=== PATIENT | male | born 1960 | race Caucasian/White ===

== ENCOUNTER 2023-09-30 11:47 | Inpatient (IN) | payer OTHER, SELFPAY ==
[2023-09-30] VITALS (14 sets, daily range): BP systolic 114–145; BP diastolic 77–92; BMI 23.7
--- NOTE | 2023-09-30 07:02 | ED.GENMED ---
History of Present Illness
General
Chief Complaint: Abdominal Pain
Source: patient and spouse
Time Seen by Provider: 09/30/23 06:42
History of Present Illness
History of Present Illness:
62-year-old male presents emergency department with nausea vomiting and diarrhea that started at approximately 9:30 PM on Thursday. This was after eating a potentially spoiled steak sandwich about 3 hours prior. Initially thought it was food
poisoning but is concerned because his symptoms continue and he has a complex prior medical history including a history of bowel obstructions, strictures, and adhesions. He suspects he is very dehydrated and describes '[id number]' in his
fingers this morning, body aches, fatigue, and a dry mouth. He denies coffee-ground emesis or hematemesis, denies blood or mucus in his stools, recent antibiotics, recent sick contacts, fever. He does have mild abdominal discomfort that is
'crampy' and worse when he vomits or has a bowel movement. He also feels slightly distended. Patient denies chest pain.
Past History
Past History
ED Past Medical History: Other (Colitis); Negative None
ED Past Surgical History: Bowel resection and Cardiac ( loop recorder, ablation)
Social History
Tobacco: Non-smoker
Alcohol: Occasional
Drug: None
Personal:
Living: with family
Employment: Employed
Phy Exam
Physical Exam
Physical Exam:
GENERAL: Alert , in no apparent distress
EYE: pupils equal and reactive
NECK: Supple, no significant adenopathy.
ENT: o/p clr, mm dry
CARDIAC: Regular rate and rhythm .
LUNGS: Clear breath sounds bilaterally, no acute respiratory distress, no wheezes/rales/rhonchi
ABDOMEN: Soft, very mild left lower quadrant tenderness, slightly hyperactive bowel sounds , no r/g
NEUROLOGICAL: Alert and oriented, no focal neuro deficits
SKIN: Warm and dry, skin intact.
MUSCULOSKELETAL: No edema, well perfused.
PSYCH: Normal and appropriate interaction.
Course
Orders/Labs/Results
Orders:
Orders
09/30/23 07:01
Cardiac Monitoring- Treatment ONCE
0.9% Sodium Chloride 1000 ml [Nss] 1,000 ml IV BOLUS
Ondansetron Injectable [Zofran] 4 mg IV NOW STA
CR Obstruct Series W/pa Chest Urgent
Comment:
Reason For Exam: hx bowel obstruction, hx colectomy
09/30/23 07:06
Complete Blood Count/No Diff Urgent
Comprehensive Metabolic Panel Urgent
Lipase Urgent
09/30/23 08:25
0.9% Sodium Chloride 500 ml [Nss] 500 ml IV BOLUS
Ondansetron Injectable [Zofran] 4 mg IV NOW STA
09/30/23 10:00
0.9% Sodium Chloride 1000 ml [Nss] 1,000 ml IV 125 mls/hr
09/30/23 11:32
GASTROINTESTINAL CONSULT Routine
Consulting Provider: Ashly Andrade
Was physician already notified: Yes
Reason for consult: NVD,Chrons
C difficile Antigen & Toxins Urgent
EKATERINA Source: Feces/Stool
Specimen Description:
Date Specimen was Collected: 09/30/23
Time Specimen was Collected: 11:30
Ova & Parasites Giardia/Crypto AG [Giardia/Cryptosporidium Ag] Urgent
EKATERINA Source: Feces/Stool
Specimen Description:
Date Specimen was Collected: 09/30/23
Time Specimen was Collected: 11:30
Stool Culture Urgent
EKATERINA Source: Feces/Stool
Specimen Description:
Date Specimen was Collected: 09/30/23
Time Specimen was Collected: 11:30
09/30/23 11:33
Admit/Transfer Patient As Directed
Co-Sign Provider:
Level of Care: Inpatient admission
Assign to:: Medical/Surgical
Physician / Group: Hospitalist
Diagnosis: Nausea vomiting diarrhea, partial SBO, Crohn's
Reason for Hospitalization: Nausea vomiting diarrhea, partial SBO, Crohn's
Expected length of stay greater than two midnights?: Yes
ELOS- Estimated Length of Stay in days: 2
I certify the patient meets the requirements for IP care: Yes
PRN Pain Medication Management As Directed
May give lesser potent ordered pain med per pt: Yes
preference::
Protocol:: Medication orders for pain may be administered in a
manner that supports deferring to patient preference
when the pt is:
-Requesting an ordered lesser potent pain medication.
Least to most potent pain medications are defined as:
acetaminophen < NSAID < tramadol < opioids (morphine,
oxycodone, hydromorphone).
- Requesting a lesser dose of the same medication IF
ORDERED.
- Requesting a less intrusive route of administration
if both routes are prescribed by the provider (PO <
IV).
09/30/23 11:35
Code Status As Directed
Resuscitation Status: Full Code
Abnormal Lab Results
09/30/23
07:06
RBC 6.17 H 10^6/uL
(4.70-6.10)
RDW 15.6 H %
(11.5-14.5)
BUN 24 H mg/dl
(9-20)
Creatinine 1.8 H mg/dL
(0.7-1.3)
Glucose 118 H mg/dl
(70-99)
Total Bilirubin 2.1 H mg/dl
(0.2-1.3)
Alkaline Phosphatase 134 H U/L
(38-126)
09/30/23 07:06
09/30/23 07:06
Vital Signs
Initial and Last Documented VS:
Initial Vital Signs
Temp Pulse Resp BP Pulse Ox
97.6 F 111 20 126/92 100
07/31/24 06:03 09/30/23 06:03 09/30/23 06:03 09/30/23 06:03 09/30/23 06:03
Last Documented Vital Signs
Temp Pulse Resp BP Pulse Ox
97.6 F 83 15 122/77 97
09/30/23 06:03 09/30/23 13:00 09/30/23 13:00 09/30/23 13:00 09/30/23 13:00
*Critical Care Note
Total Time (30-74mins, 75-104mins- exclusive of procedures): Not Applicable
Update Note
Update Note:
Patient presents to the Emergency Department with ____nausea vomiting diarrhea
Number and Complexity of Problems Addressed at the Encounter
� Chronic conditions affecting care:
� Acute Exacerbation and/or Progression of Chronic Illness:
� Differential Diagnosis includes: But not limited to food related toxin, bowel obstruction, dehydration, etc. etc.
Amount and/or Complexity of Data to be Reviewed and Analyzed
� I performed an independent evaluation of and my interpretation is:
EKG:
CT:
Xrays: suggest partial sbo (read by rads)
Laboratory Studies:generally unremarkable
Other:
� Review of other/old records reveals: July 2021 patient seen for PVI for A-fib
� Clinical information was obtained by an independent historian: who is bedside
� Prescriptions/Medications Considered but not given:
� Further testing considered but not performed:
Risk of Complications and/or Morbidity or Mortality of Patient Management
� Social determinants of health affecting care:
� Discussion with other providers (PCP, Hospitalists, Consultants, etc):
� Escalation of care including admission/observation vs risk of discharge considered:959 am mult reassessments, pt feels better, did urinate, however still quite nauseous and will not be able to tolerate po. Will admit given
noted sbo. No abd ttp/fever/leukocytosis etc to suggest more worrisome process. Hospitalist made aware.
ED Attending Note
-
Portions of this chart may have been created with voice recognition software.� Occasional wrong word or��sound alike� substitutions may have occurred due to the inherent limitations of voice recognition software.
Discharge Plan
Departure
Patient Disposition: Admit
Date of Disposition: 09/30/23
Time of Disposition: 10:00
Admit to: Med/Surg
Presentation/result/management discussed w/ accepting MD/DO: Hospitalist
Discharge Problem:
SBO (small bowel obstruction)
Interventions
Interventions:
*Risk Screen - Suicide Last Done: 09/30/23 07:16
*General Assessment Last Done: 09/30/23 06:03
*Neglect/Abuse Screening Last Done: 09/30/23 07:16
ED- Fall Risk Assessment Last Done: 09/30/23 11:25
*ED COVID-19 Vaccine History Last Done: 09/30/23 07:15
AL-Khcxvf-Lmglbysvex Assessment Last Done: 09/30/23 07:17
[2023-09-30 07:11] LABS: Hematocrit 50.9 % (39.0-52.0); Hemoglobin 17.9 g/dL (13.0-18.0); Mean Corp Hgb Conc. 35.2 g/dL (33.0-37.0); Mean Corpuscular Volume 82.5 fL (80.0-94.0); Platelet Count 211 10^3/uL (130-400); Red Blood Cell Count 6.17 10^6/uL (4.70-6.10); Red Cell Dist. Width 15.6 % (11.5-14.5); White Blood Cell Count 9.6 10^3/uL (4.8-10.8)
[2023-09-30] MEDS: ZOFRAN 4 MG IV ×3 (07:12→20:58)
[2023-09-30] MEDS: NSS 1000 IV ×3 (07:12→19:38)
[2023-09-30 07:33] LABS: ALT (SGPT) 25 U/L (0-50); AST (SGOT) 33 U/L (17-59); Albumin 4.9 g/dl (3.5-5.0); Alkaline Phosphatase 134 U/L (38-126); Blood Urea Nitrogen 24 mg/dl (9-20); Calcium 9.9 mg/dl (8.4-10.2); Carbon Dioxide 24 mmol/L (22-30); Chloride 103 mmol/L (98-107); Glucose 118 mg/dl (70-99); Lipase 98 U/L (23-300); Potassium 4.8 mmol/L (3.5-5.1); Sodium 138 mmol/L (135-145); Total Bilirubin 2.1 mg/dl (0.2-1.3); Total Protein 7.9 g/dl (6.3-8.2); eGFR 41.51
[2023-09-30] MEDS: NSS 500 IV (08:29)
--- NOTE | 2023-09-30 10:19 | HPS.HSE ---
Family Physician
-
Family Physician: Beth Draper
Chief Complaint
-
Abdominal pain
History of Present Illness
62-year-old male with nausea vomiting and diarrhea after eating potentially spoiled steak sandwich. Initially he felt food poisoning but that he has a history of bowel obstruction and adhesions. He also felt that he was dehydrated. He has had
several episodes of nausea and vomiting could not keep anything down. Also had several episodes of diarrhea. Abdominal cramps.
Medical History
Past Medical History
Past Medical History: Reports Other
Additional Past Medical History:
Paroxysmal atrial fibrillation, hypertension, wide-complex tachycardia, Crohn's disease, GERD, anemia
Past Surgical History: Reports Other
Additional Past Surgical History:
Ileoanal anastomosis, cardiac ablation
Social History
Tobacco: Non-smoker
Alcohol: None
Drug: None
Personal:
Living: With Family
Family History
Family History: Not pertinent
Allergies / Home Medications
Allergies reflects when Allergies were last updated in g[facility].
Home Medications with original date entered in g[facility]
Allergy/Medication List:
Allergies
Allergy/AdvReac Type Severity Reaction Status Date / Time
kiwi Allergy throat Verified 09/30/23 06:02
swelling
Penicillins Allergy Rash Verified 09/30/23 06:02
Home Medications
ustekinumab 45 mg/0.5 mL subcutaneous syringe (Stelara) 45 mg SC Q8W Autoimmune disorder 09/30/17
Saccharomyces boulardii 250 mg capsule 250 mg PO DAILY Gastrointestinal issue 01/22/21
omeprazole 20 mg capsule,delayed release 20 mg PO DAILY Gastrointestinal issue 01/22/21
terazosin 1 mg capsule 1 mg PO HS Urinary issue 01/22/21
metoprolol succinate 25 mg tablet,extended release 24 hr 25 mg PO DAILY 04/26/21
Review of Systems
-
A 12 point ROS was completed and negative except as noted: Yes
Cardiac: Denies Chest Pain
Abdomen/GI: Reports Abdominal Pain, Nausea, Vomiting and Diarrhea; Denies Bloody Stools
Physical Exam
Vital Signs
Vital Signs
Temp Pulse Resp BP Pulse Ox
97.6 F 83 14 134/83 98
09/30/23 06:03 09/30/23 10:00 09/30/23 10:00 09/30/23 10:00 09/30/23 10:00
Physical Exam
General: Comfortable and Conversant
Respiratory: Clear
Cardiac: S1/S2 and Regular Rhythm
GI: Soft, Normal Bowel Sounds and Tender (Mild left lower quadrant discomfort with palpation)
Neuro: AO x 3
Psych: Intact Judgment/Insight
Laboratory Results
-
09/30/23 07:06
09/30/23 07:06
Laboratory Results
Total Bilirubin 2.1 mg/dl (0.2-1.3) H 09/30/23 07:06
AST 33 U/L (17-59) 09/30/23 07:06
ALT 25 U/L (0-50) 09/30/23 07:06
Alkaline Phosphatase 134 U/L (38-126) H 09/30/23 07:06
Lipase 98 U/L (23-300) 09/30/23 07:06
Data Reviewed
-
Diagnostic Radiology: Report Reviewed by me (X-ray-lungs clear. Post colectomy with J-pouch findings consistent with small bowel obstruction likely partial/incomplete)
Impression/Plan
-
IMPRESSION/PLAN:
# Nausea vomiting and diarrhea
Possible infectious gastroenteritis
Check stool studies
Given history of Crohn's disease and partial small bowel obstruction will also request GI evaluation
# Acute kidney injury likely secondary to GI related losses
IV fluids and follow creatinine
# History of wide-complex tachycardia on Zio patch NSVT versus SVT with aberrancy-continue beta-blockers
Cardiac catheterization January 22, 2021-nonobstructive coronary artery disease-LAD, preserved LV systolic function
# Paroxysmal atrial fibrillation with pulmonary vein isolation/ablation-continue metoprolol. Not on anticoagulation now.
Patient states he has a loop monitor on and no events since then.
# Hyperlipidemia-takes atorvastatin
# Crohn's disease-on Stelara
# Right paracentral disc extrusion L5-S1
# Cholelithiasis
# Enlarged prostate-on terazosin. Advised to follow-up with urology
# GERD-continue PPI
# DVT prophylaxis-Lovenox
# Full code
Discussed with nursing
Discussed with patient's at bedside
--- NOTE | 2023-09-30 14:10 | CON.GI ---
Addendum entered and electronically signed by Ashly Andrade DO 09/30/23 16:36:
I saw and examined the patient.
The GIS SCIENTIST or PA's note was reviewed and I agree with the note.
Comment:
Flakito is a 62-year-old male with past medical history of ulcerative colitis s/p proctocolectomy with IPAA, converted to Crohn's disease complicated by multiple partial small bowel obstructions which have been managed medically who presents with
worsening abdominal pain, found to have a small partial small bowel obstruction. At time of evaluation patient already feeling better, states that has about 5 of these episodes per year but has not required evaluation in the ER in a few years. He
follows closely with his outpatient GI doctor, Dr. Nina. Currently, on Stelara, previously has been on Remicade and Entyvio. He has not had any hospitalizations while on Stelara. He is passing gas, feels like he has to have a BM.
-c/w IVF
-clear liquid diet
-will f/u in AM to decide on steroids, hold at this time
Original Note:
Consultation
-
Date/Time Consultation Requested: 09/30/23 1130
Date/Time Consultation Performed: 09/30/23 1420
Requesting Provider: Meghna Benites MD
Performing Provider: DARREN Peters, Felisa Andrade DO
Reason for Consultation: hx crohns hx SBO
Medical History
Chief Complaint / HPI
Chief Complaint: abdominal pain
History of Present Illness:
Pt is a 62yo with hx afib with prior ablation, GERD, HTN, chronic anemia with periodic iron infusion with [facility] though [place], and inflammatory bowel disease. Pt was initially diagnosed with ulcerative colitis in his early 20's
treated with sulfasalazine then eventual has 3 surgeries within [address] Mart at [facility]. He first completed ostomy then eventual J pouch with total colectomy. He was well for several years then began with recurrent abdominal
pain. After radiology review at [facility] and repeat flex sig was diagnosed with crohn's disease. He started Remicade with eventual resistance then Entyvio and now on Stelara for last 3 years. Last prolonged hospital admission was at [facility] 4 years ago.
He has had steroid treatment about every 2 years but no further surgery was needed. He is currently following with Dr. Ford with follow up last week and due for his every 2 year flex sig in March. He admits to occasional obstructive symptoms
that he will be able to control with limiting diet and exercise but now noted with episode of increased pain with vomiting and change in stool pattern prompting ER visit. On admission he is noted with imaging concern for small bowel obstruction
partial or incomplete. Since ER visit he is feeling better. He typically will have small stools or toothpaste consistency and now with all liquid stools.
Pt admits to some chronic dysphagia. He also has GERD with daily Omeprazole use. He states pain has been variable mostly on right side around prior ostomy. From -10/09. He denies hematemesis, blood or black in stools. No weight loss. Last
flex sig 2022 with flex sig completed every 2 years. Last EGD about 2 years ago.
Past Medical History
Past Medical History: Arrhythmias (afib, wide complex tachycardia ), GERD, HTN and Other (ulcerative colitis with total colectomy and Jpouch then later diagnosed with crohns disease, anemia, pouchitis )
Past Surgical History: Cardiac (ablation)
Social History
Tobacco: Non-Smoker
Alcohol: Other (1 drink per month )
Drug: None
Personal:
Living: With Family
Employment: Employed
Family History
Family History: Other (no family hx UC or crohns disease )
Allergies / Home Medications
Allergy/AdvReac Type Severity Reaction Status Date / Time
kiwi Allergy throat Verified 09/30/23 06:02
swelling
Penicillins Allergy Rash Verified 09/30/23 06:02
�Medication �Instructions �Recorded
ustekinumab 45 mg/0.5 mL 45 mg SC Q8W Autoimmune disorder 09/30/17
subcutaneous syringe (Stelara)
Saccharomyces boulardii 250 mg 250 mg PO DAILY Gastrointestinal 01/22/21
capsule issue
omeprazole 20 mg capsule,delayed 20 mg PO DAILY Gastrointestinal 01/22/21
release issue
terazosin 1 mg capsule 1 mg PO HS Urinary issue 01/22/21
metoprolol succinate 25 mg 25 mg PO DAILY 04/26/21
tablet,extended release 24 hr
rosuvastatin 5 mg tablet 5 mg PO DAILY 09/30/23
Review of Systems
-
History Source: Patient
Constitutional: Reports No Symptoms
EENT: Reports No Symptoms
Respiratory: Reports No Symptoms
Cardiac: Reports No Symptoms
Abdomen/GI: Reports Abdominal Pain, Nausea, Vomiting and Diarrhea
: Reports Difficulty Voiding
Musculoskeletal: Reports No Symptoms
Skin: Reports No Symptoms
Neurological: Reports No Symptoms
Endocrine: Reports No Symptoms
Hematologic/Lymphatic: Reports Other (chronic anemia with periodic transfusions)
Vital Signs
Temp Pulse Resp BP Pulse Ox
97.6 F 83 15 122/77 97
09/30/23 06:03 09/30/23 13:00 09/30/23 13:00 09/30/23 13:00 09/30/23 13:00
Physical Exam
Exam
General: Well Developed, Well Nourished and No Apparent Distress
HEENT: Normocephalic and Anicteric
Respiratory: Clear
Cardiac: Regular Rhythm
GI: Soft, Non Tender, Non Distended and Other (mid abdominal scar and prior ostomy site well healed , no distention)
Musculoskeletal: No Clubbing and No Cyanosis
Skin: Warm and Dry
Neuro: Awake, Alert and AO x 3
Psych: Calm
Results
WBC 9.6 10^3/uL (4.8-10.8) 09/30/23 07:06
Hgb 17.9 g/dL (13.0-18.0) 09/30/23 07:06
Hct 50.9 % (39.0-52.0) 09/30/23 07:06
MCV 82.5 fL (80.0-94.0) 09/30/23 07:06
Plt Count 211 10^3/uL (130-400) 09/30/23 07:06
Sodium 138 mmol/L (135-145) 09/30/23 07:06
Potassium 4.8 mmol/L (3.5-5.1) 09/30/23 07:06
Chloride 103 mmol/L (98-107) 09/30/23 07:06
Carbon Dioxide 24 mmol/L (22-30) 09/30/23 07:06
BUN 24 mg/dl (9-20) H 09/30/23 07:06
Creatinine 1.8 mg/dL (0.7-1.3) H 09/30/23 07:06
Calcium 9.9 mg/dl (8.4-10.2) 09/30/23 07:06
Total Bilirubin 2.1 mg/dl (0.2-1.3) H 09/30/23 07:06
AST 33 U/L (17-59) 09/30/23 07:06
ALT 25 U/L (0-50) 09/30/23 07:06
Alkaline Phosphatase 134 U/L (38-126) H 09/30/23 07:06
Lipase 98 U/L (23-300) 09/30/23 07:06
Diagnostic Image Results:
Prior GI Procedures:
EGD: last 2020 -- record not reviewed
EGD : 2018 Dr. Gutierrez- non severe reflux esophagitis, gastritis
flex sig: due 03/2024, last 04/2022 not review
flex sig 2018- anal stricture on digital rectal exam, crohns disease with ileitis inflammation in rectum mildly severe, unchanged from prior
Assessment / Plan
-
Pt is a 62yo with hx afib with prior ablation, GERD, HTN, chronic anemia with periodic iron infusion with [facility] [place], and inflammatory bowel disease. Pt was initially diagnosed with ulcerative colitis in his early 20's
treated with sulfasalazine then eventual has 3 surgeries within [address] Mart at [facility]. He first completed ostomy then eventual J pouch with total colectomy. He was well for several years then began with recurrent abdominal
pain. After radiology review at [facility] and repeat flex sig was diagnosed with crohn's disease. He started Remicade with eventual resistance then Entyvio and now on Stelara for last 3 years. Last prolonged hospital admission was at [facility] 4 years ago.
He has had steroid treatment about every 2 years but no further surgery was needed. He is currently following with Dr. Ford with follow up last week and due for his every 2 year flex sig in March. He admits to occasional obstructive symptoms
that he will be able to control with limiting diet and exercise but now noted with episode of increased pain with vomiting and change in stool pattern prompting ER visit. On admission he is noted with imaging concern for small bowel obstruction
partial or incomplete. Since ER visit he is feeling better. He typically will have small stools or toothpaste consistency and now with all liquid stools. Noted with ARNOLD creat 1.8 on admission with hbg up to 17.9
-crohns flare with concern for partial SBO
-longstanding IBD - initially UC then crohn's with hx total colectomy with J pouch
-ARNOLD on admission with hemoconcentration
-chronic iron deficiency anemia with period infusion
-hx dysphagia
other med problems:
-afib with prior ablation
-GERD
-HTN
PLAN:
etiology of symptoms with concern for crohns flare-- pt with known SB stricturing disease inflammatory vs stenosis( pt on chronic Stelara prior to admission with last steroid course 2 years ago) vs gastroenteritis vs other
pt already improving in ER with hydration as noted significant dehydration on admission with ARNOLD and hemoconcentration
will trial clear liquid diet and monitor
trend labs
hold steroids for now but if not improving consider course of steroids
add CRP. ESR
last dose Stelara 2 weeks ago
trend hbg expect drop with hydration and known chronic anemia
on discharge follow up with know GI Dr. Ford
-
-
Thank you for consultation and allowing me to participate in the patient's care. Please call the transplant surgeon GI physician during the after hours with any questions or concerns.
[2023-09-30 16:36] LABS: Erythrocyte Sed Rate 10 mm/hour (0-20)
[2023-09-30] MEDS: LOVENOX 40 MG SC (18:10)
[2023-09-30] MEDS: LIPITOR 10 MG PO (18:10)
[2023-09-30] MEDS: HYTRIN 1 MG PO (20:58)
[2023-10-01] MEDS: NSS 1000 IV ×2 (00:56→12:49)
[2023-10-01 03:11] VITALS: BP 120/78
[2023-10-01 08:00] VITALS: BP 143/87
[2023-10-01 08:54] LABS: % Basophils 0.5 % (0-2); % Immature Granulocytes 0.2 % (0-0.5); % Monocytes 7.1 % (1.7-9.3); % Neutrophils 75.2 % (42.2-75.2); Absolute Eosinophils 0.2 10^3/uL (0-0.7); Absolute Lymphocytes 0.8 10^3/uL (1.2-3.4); Absolute Monocytes 0.4 10^3/uL (0.1-0.6); Absolute Neutrophils 4.3 10^3/uL (1.4-6.5); Hematocrit 46.7 % (39.0-52.0); Hemoglobin 15.8 g/dL (13.0-18.0); Mean Corp Hgb Conc. 33.8 g/dL (33.0-37.0); Mean Corpuscular Hgb 29.4 pg (27.0-31.0); Mean Platelet Volume 10.1 fL (7.4-10.4); Nucleated Red Blood Cells % 0 % (-); Platelet Count 166 10^3/uL (130-400); Red Blood Cell Count 5.37 10^6/uL (4.70-6.10); Red Cell Dist. Width 15.1 % (11.5-14.5); White Blood Cell Count 5.7 10^3/uL (4.8-10.8)
[2023-10-01] MEDS: FLORASTOR 250 MG PO (09:32)
[2023-10-01] MEDS: DELTASONE 40 MG PO (09:33)
[2023-10-01] MEDS: TOPROL XL 25 MG PO (09:33)
[2023-10-01] MEDS: ZOFRAN 4 MG PO ×2 (09:34→18:28)
--- NOTE | 2023-10-01 11:14 | W.PN.GI.CBS2 ---
Addendum entered and electronically signed by Ashly Radha DO [place] 10/01/23 13:16:
I saw and examined the patient.
The FLEET MANAGER or PA's note was reviewed and I agree with the note.
Comment: Patient seen in follow-up, tolerating clear liquid diet, states he feels about 50% improved, but still feels he is obstructed. He is passing loose stools, no vomiting since arrival, zofran is helping.
Infectious studies have returned negative so far, will plan to start on Prednisone 40mg daily, hopefully, will see improvement in the next 24 hours. Will reevaluate in the AM, if feeling significantly improved, he will be okay to discharge with
Prednisone taper as an outpatient, and follow-up with his GI doctor, Dr. Nina. We discussed performing dedicated small bowel imaging, but he would like to defer this to outpatient with his GI doctor, unless he does not improve.
Original Note:
Today's Communication / Plan
-
slow improvement no vomiting
advance to full liquids
add Prednisone 40mg daily
add Zofran RTC over next 24 hours
check EKG
add on chemistry with ARNOLD on admission
cont frequent ambulation
if any worsening pain, recurrent vomiting consider IV steroid and surgical eval
on discharge follow up with know GI Dr. Ford
pt asking about discharge tomorrow as going on trip to [place] -- await labs and defer to hospitalist team for discharge-- from GI standpoint not ready today as need slow diet advancement and tolerating liquid to prevent recurrent dehydration
Assessment / Plan
-
Pt is a 62yo with hx afib with prior ablation, GERD, HTN, chronic anemia with periodic iron infusion with [facility] though [place], and inflammatory bowel disease. Pt was initially diagnosed with ulcerative colitis in his early 20's
treated with sulfasalazine then eventual has 3 surgeries within [address] Mart at [facility]. He first completed ostomy then eventual J pouch with total colectomy. He was well for several years then began with recurrent abdominal
pain. After radiology review at [place] and repeat flex sig was diagnosed with crohn's disease. He started Remicade with eventual resistance then Entyvio and now on Stelara for last 3 years. Last prolonged hospital admission was at [place] 4 years ago.
He has had steroid treatment about every 2 years but no further surgery was needed. He is currently following with Dr. Ford with follow up last week and due for his every 2 year flex sig in March. He admits to occasional obstructive symptoms
that he will be able to control with limiting diet and exercise but now noted with episode of increased pain with vomiting and change in stool pattern prompting ER visit. On admission he is noted with imaging concern for small bowel obstruction
partial or incomplete. Since ER visit he is feeling better. He typically will have small stools or toothpaste consistency and now with all liquid stools. Noted with ARNOLD creat 1.8 on admission with hbg up to 17.9
-crohns flare with concern for partial SBO
-longstanding IBD - initially UC then crohn's with hx total colectomy with J pouch
-ARNOLD on admission with hemoconcentration
-chronic iron deficiency anemia with period infusion
-hx dysphagia
other med problems:
-afib with prior ablation
-GERD
-HTN
PLAN:
etiology of symptoms with concern for crohns flare-- pt with known SB stricturing disease inflammatory vs stenosis( pt on chronic Stelara prior to admission with last steroid course 2 years ago) vs gastroenteritis vs other
continued improvement but still with pain and minimal stools
ESR 10, CRP 24.3
ok for full liquid diet trial with ensure
RTC Zofran with check of EKG this am for QTC
add Prednisone 40mg daily starting today
add on chemistry with ARNOLD on admission cont IVF per hospitalist team
cont frequent ambulation
trend labs
last dose Stelara 2 weeks ago
trend hbg expect drop with hydration and known chronic anemia
if any worsening pain, recurrent vomiting consider IV steroid and surgical eval
on discharge follow up with know GI Dr. Ford
pt asking about discharge tomorrow as going on trip to [place] -- await labs and defer to hospitalist team for discharge-- from GI standpoint not ready today as need slow diet advancement and tolerating liquid to prevent recurrent dehydration
Subjective
Subjective
Date of Service: October 01, 2023
minimal stools but no vomiting, still with abdominal pain no further vomiting
Objective
Data Reviewed
Laboratory Data:
Laboratory Results
10/01/23 08:08
Laboratory Results
Magnesium 2.0 mg/dl (1.6-2.3) 10/01/23 08:08
Total Bilirubin 2.1 mg/dl (0.2-1.3) H 09/30/23 07:06
AST 33 U/L (17-59) 09/30/23 07:06
ALT 25 U/L (0-50) 09/30/23 07:06
Alkaline Phosphatase 134 U/L (38-126) H 09/30/23 07:06
Lipase 98 U/L (23-300) 09/30/23 07:06
Vital Signs and I&O:
Vital Signs
Temp Pulse Resp BP Pulse Ox
97.7 F 79 18 143/87 96
10/01/23 08:00 10/01/23 08:00 10/01/23 08:00 10/01/23 08:00 10/01/23 08:00
I&O
09/30/23 10/01/23 10/02/23
06:59 06:59 06:59
Intake Total 1115 / 1115
Balance 1115 / 1115
Physical Exam
Physical Exam
HEENT: Anicteric and Moist mucous membranes
Cardiology: Normal Sinus Rhythm
Pulmonary: Clear
GI: Soft, Non Distended and Tender (diffuse lower abdomen )
Extremities: No Edema
Neuro: Non Focal
[2023-10-01 11:23] LABS: Blood Urea Nitrogen 16 mg/dl (9-20); Calcium 8.7 mg/dl (8.4-10.2); Carbon Dioxide 19 mmol/L (22-30); Chloride 110 mmol/L (98-107); Estimated Creatinine Clearance 70 ml/min; Glucose 79 mg/dl (70-99); Sodium 138 mmol/L (135-145); eGFR > 60.00
--- NOTE | 2023-10-01 14:41 | CM ---
Patient seen at bedside.
IA complete.
Patient lives in a 2 story home with and daughter.
2 steps into home & 12 steps to 2nd floor.
PLOF: Independent, driving.
No needs.
PLAN: Discharge when stable. No needs identified.
[2023-10-01] MEDS: NON-FORMULARY ITEM 1 UNIT PO (15:07)
[2023-10-01] MEDS: MYLICON 80 MG PO ×2 (15:17→18:34)
[2023-10-01 16:00] VITALS: BP 135/85
[2023-10-01] MEDS: LOVENOX SC ×2 (18:27→18:30)
[2023-10-01] MEDS: LIPITOR 10 MG PO (18:27)
[2023-10-01] MEDS: HYTRIN 1 MG PO (21:40)
[2023-10-01 23:23] VITALS: BP 121/76
[2023-10-02] MEDS: ZOFRAN PO (01:25)
[2023-10-02 06:00] VITALS: BMI 23.6
[2023-10-02 07:20] VITALS: BP 139/86
[2023-10-02 08:43] LABS: Hematocrit 44.4 % (39.0-52.0); Hemoglobin 15.5 g/dL (13.0-18.0); Mean Corp Hgb Conc. 34.9 g/dL (33.0-37.0); Mean Corpuscular Hgb 29.6 pg (27.0-31.0); Mean Corpuscular Volume 84.9 fL (80.0-94.0); Mean Platelet Volume 10.1 fL (7.4-10.4); Platelet Count 193 10^3/uL (130-400); Red Blood Cell Count 5.23 10^6/uL (4.70-6.10); Red Cell Dist. Width 14.7 % (11.5-14.5); White Blood Cell Count 9.5 10^3/uL (4.8-10.8)
[2023-10-02 08:53] LABS: Blood Urea Nitrogen 11 mg/dl (9-20); Calcium 9.2 mg/dl (8.4-10.2); Carbon Dioxide 24 mmol/L (22-30); Chloride 108 mmol/L (98-107); Estimated Creatinine Clearance 86 ml/min; Glucose 107 mg/dl (70-99); Potassium 4.4 mmol/L (3.5-5.1); Sodium 138 mmol/L (135-145); eGFR > 60.00
[2023-10-02] MEDS: NON-FORMULARY ITEM 1 UNIT PO (09:45)
[2023-10-02] MEDS: MYLICON 80 MG PO (09:50)
[2023-10-02] MEDS: DELTASONE 40 MG PO (09:51)
[2023-10-02] MEDS: TOPROL XL 25 MG PO (09:51)
[2023-10-02] MEDS: ZOFRAN 4 MG PO (09:53)
[2023-10-02] MEDS: FLORASTOR 250 MG PO (09:53)
--- NOTE | 2023-10-02 10:35 | W.PN.GI.CBS2 ---
Today's Communication / Plan
-
etiology of symptoms with concern for crohns flare-- pt with known SB stricturing disease inflammatory vs stenosis( pt on chronic Stelara prior to admission with last steroid course 2 years ago) vs gastroenteritis vs other
stool studies neg
continued improvement but still with pain but now some form to stool
ESR 10, CRP 24.3
tolerating some low residue diet with ensure
cont Zofran QTc 428 and stable
cont Prednisone 40mg daily with taper by 10mg every 5 days advised if increased symptoms after discharge to review with Dr. alvarado
now off IVF pt asking if need more prior to discharge will review with Dr. Benites
cont frequent ambulation
last dose Stelara 2 weeks ago - to review with known GI Dr. Ford for any need to change therapy or continue
trend hbg expect drop with hydration and known chronic anemia
if any worsening pain, recurrent vomiting consider IV steroid and surgical eval advised if discharged return with worsening symptoms
on discharge follow up with know GI Dr. Ford
Assessment / Plan
-
Pt is a 62yo with hx afib with prior ablation, GERD, HTN, chronic anemia with periodic iron infusion with [facility] though [place], and inflammatory bowel disease. Pt was initially diagnosed with ulcerative colitis in his early 20's
treated with sulfasalazine then eventual has 3 surgeries within [address] Mart at [facility]. He first completed ostomy then eventual J pouch with total colectomy. He was well for several years then began with recurrent abdominal
pain. After radiology review at [facility] and repeat flex sig was diagnosed with crohn's disease. He started Remicade with eventual resistance then Entyvio and now on Stelara for last 3 years. Last prolonged hospital admission was at [facility] 4 years ago.
He has had steroid treatment about every 2 years but no further surgery was needed. He is currently following with Dr. Ford with follow up last week and due for his every 2 year flex sig in March. He admits to occasional obstructive symptoms
that he will be able to control with limiting diet and exercise but now noted with episode of increased pain with vomiting and change in stool pattern prompting ER visit. On admission he is noted with imaging concern for small bowel obstruction
partial or incomplete. Since ER visit he is feeling better. He typically will have small stools or toothpaste consistency and now with all liquid stools. Noted with ARNOLD creat 1.8 on admission with hbg up to 17.9
-crohns flare with concern for partial SBO
-longstanding IBD - initially UC then crohn's with hx total colectomy with J pouch
-ARNOLD on admission with hemoconcentration
-chronic iron deficiency anemia with period infusion
-hx dysphagia
other med problems:
-afib with prior ablation
-GERD
-HTN
PLAN:
etiology of symptoms with concern for crohns flare-- pt with known SB stricturing disease inflammatory vs stenosis( pt on chronic Stelara prior to admission with last steroid course 2 years ago) vs gastroenteritis vs other
stool studies neg
continued improvement but still with pain but now some form to stool
ESR 10, CRP 24.3
tolerating some low residue diet with ensure
cont Zofran QTc 428 and stable
cont Prednisone 40mg daily with taper by 10mg every 5 days advised if increased symptoms after discharge to review with Dr. alvarado
now off IVF pt asking if need more prior to discharge will review with Dr. Benites
cont frequent ambulation
last dose Stelara 2 weeks ago - to review with known GI Dr. Ford for any need to change therapy or continue
trend hbg expect drop with hydration and known chronic anemia
if any worsening pain, recurrent vomiting consider IV steroid and surgical eval advised if discharged return with worsening symptoms
on discharge follow up with know GI Dr. Ford
Subjective
Subjective
Date of Service: October 02, 2023
low residue diet, passing some form to stools, still with some left sided pain but asking about discharge
Objective
Data Reviewed
Laboratory Data:
Laboratory Results
10/02/23 08:21
10/02/23 08:21
Laboratory Results
Magnesium 2.0 mg/dl (1.6-2.3) 10/01/23 08:08
Total Bilirubin 2.1 mg/dl (0.2-1.3) H 09/30/23 07:06
AST 33 U/L (17-59) 09/30/23 07:06
ALT 25 U/L (0-50) 09/30/23 07:06
Alkaline Phosphatase 134 U/L (38-126) H 09/30/23 07:06
Lipase 98 U/L (23-300) 09/30/23 07:06
Vital Signs and I&O:
Vital Signs
Temp Pulse Resp BP Pulse Ox
97.6 F 82 16 139/86 95
10/02/23 07:20 10/02/23 07:20 10/02/23 07:20 10/02/23 07:20 10/02/23 07:20
I&O
10/01/23 10/02/23 10/03/23
06:59 06:59 06:59
Intake Total 1115 / 1115 2335 / 2335
Balance 1115 / 1115 2335 / 2335
Physical Exam
Physical Exam
HEENT: Anicteric and Moist mucous membranes
Cardiology: Normal Sinus Rhythm
Pulmonary: Clear
GI: Soft, Non Distended and Tender (left sided )
Extremities: No Edema
Neuro: Non Focal
[2023-10-02] MEDS: NSS 1000 IV (13:08)
[2023-10-02 15:15] VITALS: BP 127/82
--- NOTE | 2023-10-02 15:20 | CM ---
Patient seen at bedside.
States will be discharged today.
No needs identified.
States Tracy to transport home.
PLAN: Discharge likely today. No needs identified.
--- NOTE | 2023-10-02 15:42 | W.PN.HOSP.TC ---
Today's Communication/Plan
-
discharge
steroid taper
Assessment / Plan
Assessment / Plan
note did not get saved yesterday. I did see and examine the patient.
CVS: S1-S2 normal
Chest: CTA B/L
Abdomen: Soft, NT , Bowel sounds present
Extremities: No edema, normal pulses
SKI PATROL: Non focal exam
# Nausea vomiting and diarrhea
Possible infectious gastroenteritis , also possible chron's flare
stool neg
Given history of Crohn's disease and partial small bowel obstruction steroids started
# Acute kidney injury likely secondary to GI related losses
resolved
# History of wide-complex tachycardia on Zio patch NSVT versus SVT with aberrancy-continue beta-blockers
Cardiac catheterization January 22, 2021-nonobstructive coronary artery disease-LAD, preserved LV systolic function
# Paroxysmal atrial fibrillation with pulmonary vein isolation/ablation-continue metoprolol. Not on anticoagulation now.
Patient states he has a loop monitor on and no events since then.
# Hyperlipidemia-takes atorvastatin
# Crohn's disease-on Stelara
# Right paracentral disc extrusion L5-S1
# Cholelithiasis
# Enlarged prostate-on terazosin. Advised to follow-up with urology
# GERD-continue PPI
# DVT prophylaxis-Lovenox
# Full code
D/W GI
D/W RN
Pt anxious to go home
tolerating LR diet
More than 30 minutes spent in discharge including
Final examination of the patient
Summarizing hospital stay
Instructions for continuing care to all relevant caregivers
Preparation of discharge records, prescriptions, and referral forms
Total time spent (in minutes): 32 min
Anticipated Discharge: Today
Subjective/Interval History
-
Date of Service: October 02, 2023
Objective Data
-
Labs:
Laboratory Results
10/02/23
08:21
WBC 9.5
Hgb 15.5
Hct 44.4
Plt Count 193
Sodium 138
Potassium 4.4
Chloride 108 H
Carbon Dioxide 24
BUN 11
Creatinine 0.9
Glucose 107 H
Calcium 9.2
Vital Signs:
Vital Signs
Temp Pulse Resp BP Pulse Ox
97.6 F 82 16 139/86 95
10/02/23 07:20 10/02/23 07:20 10/02/23 07:20 10/02/23 07:20 10/02/23 07:20
I&O
10/01/23 10/02/23 10/03/23
06:59 06:59 06:59
Intake Total 1115 / 1115 2335 / 2335
Balance 1115 / 1115 2335 / 2335
--- NOTE | 2023-10-02 15:51 | W.DS.TRANS ---
Addendum entered and electronically signed by Meghna Michael MD 10/02/23 16:13:
dictation- [id number]
Original Note:
DC Summary - Burner Tender
-
Discharge Instructions:
Sleep Apnea Risk Low
Discharge Diagnosis/Procedures Nausea vomiting and diarrhea
Dehydration
History of atrial fibrillation with ablation
High cholesterol
Chron's disease
Gallstones
Enlarged prostate
Right paracentral disc herniation L5-S1
Diet Low Residue
Activity As tolerated
Driving Restrictions As prior to admission
Instructions:
Stand-Alone Forms:
Changes to Home Medications: Yes
Discharge Medications:
DC Medications w/original date entered in frintit
ustekinumab 45 mg/0.5 mL subcutaneous syringe (Stelara) 45 mg SC Q8W Autoimmune disorder 09/30/17
Saccharomyces boulardii 250 mg capsule 250 mg PO DAILY Gastrointestinal issue 01/22/21
omeprazole 20 mg capsule,delayed release 20 mg PO DAILY Gastrointestinal issue 01/22/21
terazosin 1 mg capsule 1 mg PO HS Urinary issue 01/22/21
metoprolol succinate 25 mg tablet,extended release 24 hr 25 mg PO DAILY Blood Pressure 04/26/21
rosuvastatin 5 mg tablet 5 mg PO DAILY High Cholesterol 09/30/23
ondansetron HCl 4 mg tablet 4 mg PO Q8H PRN nausea and vomiting 5 days #15 tabs 10/02/23
prednisone 10 mg tablet See Rx Instructions .Route .COMPLEX Gastrointestinal issue #50 tabs 10/02/23
Home Medication Changes
new
ondansetron HCl 4 mg tablet 4 mg PO Q8H PRN nausea and vomiting 5 days #15 tabs 10/02/23
prednisone 10 mg tablet See Rx Instructions .Route .COMPLEX Gastrointestinal issue #50 tabs 10/02/23
Pending Results: No
== END 2023-10-02 18:00 | disposition home or self-care (01) | DRG 386 ==
LOC: 4 WEST ACU 11:47
PROVIDERS: Nurse Practitioner Adult Health; ADMITTING PHYSICIAN Hospitalist; CONSULT PHYSICIAN Internal Medicine; EMERGENCY PHYSICIAN Emergency Medicine; FAMILY PHYSICIAN Family Medicine
DX: K50.912 Crohn's disease, unspecified, with intestinal obstruction (principal); N17.9 Acute kidney failure, unspecified; I48.0 Paroxysmal atrial fibrillation; K80.20 Calculus of gallbladder without cholecystitis without obstruction; N40.0 Benign prostatic hyperplasia without lower urinary tract symptoms; I10 Essential (primary) hypertension; E78.00 Pure hypercholesterolemia, unspecified; K21.00 Gastro-esophageal reflux disease with esophagitis, without bleeding; M51.26 Other intervertebral disc displacement, lumbar region
CPT/HCPCS: 74022; 80048; 80053; 83690; 83735; 85025; 85027; 85652; 86140; 87045; 87046; 87324; 87328; 87329; 87427; 87449; 93005; 96361; 96374; 96376; 99284

== ENCOUNTER → 2024-05-18 08:56 | Outpatient (REF) | payer OTHER, SELFPAY | LOC: HWRAD 08:56 | PROVIDERS: ATTENDING PHYSICIAN Internal Medicine Rheumatology; FAMILY PHYSICIAN Family Medicine | DX: L40.52 Psoriatic arthritis mutilans (principal); M25.50 Pain in unspecified joint; K50.919 Crohn's disease, unspecified, with unspecified complications; M46.1 Sacroiliitis, not elsewhere classified | CPT/HCPCS: 72100; 72170; 73030; 73100; 73560; 73565 ==

== ENCOUNTER → 2024-06-25 13:04 | Outpatient (REF) | payer OTHER, SELFPAY | LOC: PAVMRI 13:04 | PROVIDERS: ATTENDING PHYSICIAN Orthopaedic Surgery; FAMILY PHYSICIAN Family Medicine | DX: M75.122 Complete rotator cuff tear or rupture of left shoulder, not specified as traumatic (principal) | CPT/HCPCS: 73221 ==

== ENCOUNTER → 2024-10-04 08:49 | Outpatient (REF) | payer OTHER, SELFPAY | LOC: RAD 08:49 | PROVIDERS: ATTENDING PHYSICIAN Nurse Practitioner Family; FAMILY PHYSICIAN Family Medicine | DX: R13.10 Dysphagia, unspecified (principal) | CPT/HCPCS: 74221 ==